=== PATIENT | female | born 1935 | race Caucasian/White ===

== ENCOUNTER 2018-11-23 19:57 | Inpatient (IN) | payer OTHER, MEDICAID ==
[~2018-11-23] VITALS: Ht 152.4 cm; Wt 47.2 kg
[2018-11-23] MEDS ORDERED: SODIUM CHLORIDE 0.9% 1000ML BAG (SEPSIS BOLUS) IV ONE (20:45)
[2018-11-23] MEDS ORDERED: PIPERACILLIN/TAZ 3.375G PREMIX 50 ML IV ONE (20:45)
[2018-11-23] MEDS ORDERED: VANCOMYCIN 1 G PREMIX 200 ML IV ONE (20:45)
[2018-11-23 21:31] LABS: HEMATOCRIT. 42.5 % (36.0-48.0); HEMOGLOBIN. 14.3 g/dL (12.0-16.0); MEAN CORPUSCULAR HEMOGLOBIN 30.6 pg (28.0-32.0); MEAN CORPUSCULAR VOLUME 91.1 fL (81.0-99.0); MEAN PLATELET VOLUME 6.5 fl (7.4-10.4); PLATELET 391 x1000/uL (130-400); RED BLOOD CELL COUNT 4.66 mill/uL (4.2-5.4); RED CELL DISTRIBUTION WIDTH 17.5 % (11.6-14.6)
[2018-11-23 21:38] LABS: CHLORIDE 103 mEq/L (98-107)
[2018-11-23 21:42] LABS: PARTIAL THROMBOPLASTIN TIME 24.2 sec (23.4-31.0); PROTHROMBIN TIME 10.3 sec (9.6-11.0)
[2018-11-23 21:51] LABS: PLATELET ESTIMATE NORMAL
[2018-11-23 22:19] LABS: CLARITY URINE CLEAR (CLEAR); COLOR URINE YELLOW (YELLOW); KETONES URINE NEGATIVE (NEGATIVE); LEUKOCYTE ESTERASE URINE NEGATIVE (NEGATIVE); NITRITE URINE NEGATIVE (NEGATIVE); OCCULT BLOOD URINE NEGATIVE (NEGATIVE); PROTEIN URINE TRACE (NEGATIVE); SPECIFIC GRAVITY URINE 1.014 (1.005-1.030)
[2018-11-23] MEDS ORDERED: ONDANSETRON HCL 4MG/2ML INJ IV PRN (23:45)
[2018-11-23] MEDS ORDERED: CLONIDINE 0.1MG TABLET PO PRN (23:45)
[2018-11-23] MEDS ORDERED: IPRATROPIUM/ALBUTEROL 0.5-3(2.5)MG/3ML NEB NEB PRN (23:45)
[2018-11-23] MEDS ORDERED: PIPERACILLIN/TAZ 3.375G PREMIX 50 ML IV SCH (23:45)
[2018-11-24] VITALS (15 sets, daily range): BP systolic 105–162; BP diastolic 49–87
[2018-11-24] MEDS: IPRATROPIUM/ALBUTEROL 0.5-3(2.5)MG/3ML NEB HHN SCH ×3 (00:47→20:27)
[2018-11-24] MEDS: SODIUM CHLORIDE 0.9% 1,000 ML IV SCH ×3 (01:41→20:57)
[2018-11-24] MEDS ORDERED: DEXTROSE 50% WATER 50ML SYRINGE IV PRN (03:30)
[2018-11-24] MEDS: PIPERACILLIN/TAZOBACTAM 2.25 G in DEXTROSE 5% WATER 50 ML IV SCH ×3 (05:09→17:02)
[2018-11-24] MEDS: BLOOD SUGAR DIAGNOSTIC STRIP TEST SCH ×4 (05:57→20:57)
[2018-11-24 07:09] LABS: CHLORIDE 106 mEq/L (98-107)
[2018-11-24 07:30] LABS: LDL CHOLESTEROL 37 mg/dL (5-100)
[2018-11-24 07:33] LABS: HDL CHOLESTEROL 79 mg/dL (40-59)
[2018-11-24 07:37] LABS: HEMATOCRIT. 37.1 % (36.0-48.0); HEMOGLOBIN. 12.3 g/dL (12.0-16.0); MEAN CORPUSCULAR VOLUME 87.7 fL (81.0-99.0); MEAN PLATELET VOLUME 7.1 fl (7.4-10.4); PLATELET 359 x1000/uL (130-400); RED BLOOD CELL COUNT 4.23 mill/uL (4.2-5.4); RED CELL DISTRIBUTION WIDTH 17.5 % (11.6-14.6)
[2018-11-24 08:28] LABS: PLATELET ESTIMATE NORMAL
[2018-11-24] MEDS: ENOXAPARIN 30MG/0.3ML SYR SUBCUT SCH (08:47)
[2018-11-24] MEDS: INSULIN LISPRO 100 UNITS/ML SUBCUT SCH ×4 (08:48→20:56)
[2018-11-24] MEDS: VANCOMYCIN 750 MG PREMIX 150 ML IV SCH (13:53)
[2018-11-24] MEDS: BUDESONIDE 0.5MG/2ML NEB HHN SCH ×2 (14:55→20:27)
[2018-11-24 16:03] LABS: ETHANOL BLOOD < 10 mg/dL
[2018-11-24 16:08] LABS: T4 FREE 1.26 ng/dL (0.76-1.46)
[2018-11-24 16:42] LABS: VITAMIN B12 SERUM 1084 pg/mL (211-911)
[2018-11-24 16:45] LABS: FOLIC ACID (FOLATE) SERUM > 20.00 ng/mL (>5.38)
[2018-11-25] VITALS (12 sets, daily range): BP systolic 125–175; BP diastolic 50–104
[2018-11-25] MEDS: ACETAMINOPHEN 325MG TABLET PO PRN ×2 (00:54→17:43)
[2018-11-25] MEDS: PIPERACILLIN/TAZOBACTAM 2.25 G in DEXTROSE 5% WATER 50 ML IV SCH ×4 (00:54→17:42)
[2018-11-25 06:42] LABS: BASOPHILS % 0.3 % (0.0-2.0); EOSINOPHILS % 0.1 % (0.0-5.0); HEMATOCRIT. 35.5 % (36.0-48.0); HEMOGLOBIN. 12.3 g/dL (12.0-16.0); LYMPHOCYTES % 7.7 % (20.0-50.0); MEAN CORPUSCULAR HEMOGLOBIN 32.3 pg (28.0-32.0); MEAN CORPUSCULAR VOLUME 92.8 fL (81.0-99.0); MONOCYTES % 5.9 % (2.0-8.0); PLATELET 332 x1000/uL (130-400); RED BLOOD CELL COUNT 3.82 mill/uL (4.2-5.4); RED CELL DISTRIBUTION WIDTH 17.5 % (11.6-14.6)
[2018-11-25 06:48] LABS: CHLORIDE 103 mEq/L (98-107)
[2018-11-25] MEDS: INSULIN LISPRO 100 UNITS/ML SUBCUT SCH ×4 (07:03→20:17)
[2018-11-25] MEDS: BLOOD SUGAR DIAGNOSTIC STRIP TEST SCH ×4 (07:03→20:11)
[2018-11-25] MEDS: ENOXAPARIN 30MG/0.3ML SYR SUBCUT SCH (08:48)
[2018-11-25] MEDS: VANCOMYCIN 750 MG PREMIX 150 ML IV SCH (08:48)
[2018-11-25] MEDS: IPRATROPIUM/ALBUTEROL 0.5-3(2.5)MG/3ML NEB HHN SCH ×3 (09:23→20:59)
[2018-11-25] MEDS: BUDESONIDE 0.5MG/2ML NEB HHN SCH ×2 (09:24→20:59)
[2018-11-25] MEDS: SODIUM CHLORIDE 0.9% 1,000 ML IV SCH ×2 (12:26→20:16)
[2018-11-25] MEDS ORDERED: SODIUM CHLORIDE 10% FOR INH 15ML VIAL NEB INH SCH (14:00)
[2018-11-25] MEDS: CLONIDINE 0.1MG TABLET PO PRN (22:11)
[2018-11-26] VITALS (13 sets, daily range): BP systolic 107–156; BP diastolic 48–80
[2018-11-26] MEDS: PIPERACILLIN/TAZOBACTAM 2.25 G in DEXTROSE 5% WATER 50 ML IV SCH ×4 (00:38→18:00)
[2018-11-26] MEDS: IPRATROPIUM/ALBUTEROL 0.5-3(2.5)MG/3ML NEB HHN SCH ×4 (01:02→21:24)
[2018-11-26] MEDS: VANCOMYCIN 750 MG PREMIX 150 ML IV SCH ×2 (02:40→13:28)
[2018-11-26] MEDS: SODIUM CHLORIDE 0.9% 1,000 ML IV SCH ×3 (03:31→21:37)
[2018-11-26 06:37] LABS: BASOPHILS % 0.3 % (0.0-2.0); EOSINOPHILS % 0.1 % (0.0-5.0); HEMATOCRIT. 31.1 % (36.0-48.0); HEMOGLOBIN. 10.9 g/dL (12.0-16.0); LYMPHOCYTES % 13.4 % (20.0-50.0); MEAN CORPUSCULAR HEMOGLOBIN 31.9 pg (28.0-32.0); MEAN CORPUSCULAR VOLUME 91.1 fL (81.0-99.0); MEAN PLATELET VOLUME 7.2 fl (7.4-10.4); MONOCYTES % 7.4 % (2.0-8.0); NEUTROPHILS % 78.8 % (40.0-76.0); PLATELET 308 x1000/uL (130-400); RED BLOOD CELL COUNT 3.41 mill/uL (4.2-5.4); RED CELL DISTRIBUTION WIDTH 17.3 % (11.6-14.6)
[2018-11-26 06:46] LABS: CHLORIDE 100 mEq/L (98-107)
[2018-11-26] MEDS: BLOOD SUGAR DIAGNOSTIC STRIP TEST SCH ×4 (06:50→21:36)
[2018-11-26] MEDS: INSULIN LISPRO 100 UNITS/ML SUBCUT SCH ×4 (08:04→21:42)
[2018-11-26] MEDS: ENOXAPARIN 30MG/0.3ML SYR SUBCUT SCH (09:13)
[2018-11-26] MEDS: BUDESONIDE 0.5MG/2ML NEB HHN SCH ×2 (10:20→21:25)
[2018-11-26] MEDS ORDERED: POTASSIUM CHLORIDE 20MEQ/PACKET PO NR (10:30)
[2018-11-26] MEDS ORDERED: AMLODIPINE 2.5MG TABLET PO NR (10:30)
[2018-11-26] MEDS ORDERED: FUROSEMIDE 40MG/4ML VIAL IVP NR (13:00)
[2018-11-26] MEDS: GUAIFENESIN-DM 200MG-20MG/10ML UDC PO PRN (13:27)
[2018-11-26] MEDS: INSULIN GLARGINE UD 100 UNITS/ML SYR SUBCUT SCH (21:37)
[2018-11-27] VITALS (11 sets, daily range): BP systolic 109–175; BP diastolic 51–93
[2018-11-27] MEDS: PIPERACILLIN/TAZOBACTAM 2.25 G in DEXTROSE 5% WATER 50 ML IV SCH ×5 (00:12→23:02)
[2018-11-27] MEDS: IPRATROPIUM/ALBUTEROL 0.5-3(2.5)MG/3ML NEB HHN SCH ×4 (00:42→21:18)
[2018-11-27] MEDS: VANCOMYCIN 750 MG PREMIX 150 ML IV SCH ×2 (01:56→15:46)
[2018-11-27] MEDS: CLONIDINE 0.1MG TABLET PO PRN (04:00)
[2018-11-27] MEDS: GUAIFENESIN-DM 200MG-20MG/10ML UDC PO PRN (04:00)
[2018-11-27] MEDS: BLOOD SUGAR DIAGNOSTIC STRIP TEST SCH ×4 (05:51→21:34)
[2018-11-27 07:12] LABS: BASOPHILS % 0.4 % (0.0-2.0); EOSINOPHILS % 2.5 % (0.0-5.0); HEMATOCRIT. 31.7 % (36.0-48.0); HEMOGLOBIN. 11.1 g/dL (12.0-16.0); LYMPHOCYTES % 21.9 % (20.0-50.0); MEAN CORPUSCULAR HEMOGLOBIN 32.2 pg (28.0-32.0); MEAN CORPUSCULAR VOLUME 91.8 fL (81.0-99.0); MONOCYTES % 9.4 % (2.0-8.0); NEUTROPHILS % 65.8 % (40.0-76.0); PLATELET 320 x1000/uL (130-400); RED BLOOD CELL COUNT 3.45 mill/uL (4.2-5.4); RED CELL DISTRIBUTION WIDTH 16.9 % (11.6-14.6)
[2018-11-27 07:27] LABS: CHLORIDE 100 mEq/L (98-107)
[2018-11-27] MEDS: ENOXAPARIN 30MG/0.3ML SYR SUBCUT SCH (08:38)
[2018-11-27] MEDS: AMLODIPINE 2.5MG TABLET PO SCH (08:38)
[2018-11-27] MEDS: INSULIN LISPRO 100 UNITS/ML SUBCUT SCH ×4 (08:39→21:34)
[2018-11-27] MEDS: SODIUM CHLORIDE 0.9% 1,000 ML IV SCH ×2 (08:42→19:30)
[2018-11-27] MEDS ORDERED: POTASSIUM CHLORIDE 20MEQ/PACKET PO NR (09:15)
[2018-11-27] MEDS: BUDESONIDE 0.5MG/2ML NEB HHN SCH (09:27)
[2018-11-27] MEDS ORDERED: POTASSIUM CHLORIDE INJ 40 MEQ in DEXT 5% WATER 250 ML IV NR (10:00)
[2018-11-27] MEDS: INSULIN GLARGINE UD 100 UNITS/ML SYR SUBCUT SCH ×2 (10:25→21:34)
[2018-11-28] VITALS (15 sets, daily range): BP systolic 91–179; BP diastolic 56–93
[2018-11-28] MEDS: IPRATROPIUM/ALBUTEROL 0.5-3(2.5)MG/3ML NEB HHN SCH ×4 (00:43→21:21)
[2018-11-28] MEDS: VANCOMYCIN 750 MG PREMIX 150 ML IV SCH ×2 (01:56→17:21)
[2018-11-28] MEDS: ACETAMINOPHEN 325MG TABLET PO PRN ×2 (02:05→14:36)
[2018-11-28] MEDS: CLONIDINE 0.1MG TABLET PO PRN ×2 (03:28→21:29)
[2018-11-28] MEDS: PIPERACILLIN/TAZOBACTAM 2.25 G in DEXTROSE 5% WATER 50 ML IV SCH ×3 (05:09→19:14)
[2018-11-28] MEDS: SODIUM CHLORIDE 0.9% 1,000 ML IV SCH ×2 (05:11→17:22)
[2018-11-28 05:39] LABS: BASOPHILS % 0.5 % (0.0-2.0); EOSINOPHILS % 4.8 % (0.0-5.0); HEMATOCRIT. 31.2 % (36.0-48.0); LYMPHOCYTES % 28.4 % (20.0-50.0); MEAN CORPUSCULAR HEMOGLOBIN 30.9 pg (28.0-32.0); MEAN CORPUSCULAR VOLUME 87.9 fL (81.0-99.0); MEAN PLATELET VOLUME 6.8 fl (7.4-10.4); MONOCYTES % 9.4 % (2.0-8.0); NEUTROPHILS % 56.9 % (40.0-76.0); PLATELET 317 x1000/uL (130-400); RED BLOOD CELL COUNT 3.55 mill/uL (4.2-5.4); RED CELL DISTRIBUTION WIDTH 16.8 % (11.6-14.6)
[2018-11-28] MEDS: BLOOD SUGAR DIAGNOSTIC STRIP TEST SCH ×4 (06:00→21:27)
[2018-11-28 06:02] LABS: CHLORIDE 103 mEq/L (98-107)
[2018-11-28] MEDS: INSULIN GLARGINE UD 100 UNITS/ML SYR SUBCUT SCH ×2 (09:12→21:36)
[2018-11-28] MEDS: INSULIN LISPRO 100 UNITS/ML SUBCUT SCH ×4 (09:12→21:00)
[2018-11-28] MEDS: AMLODIPINE 2.5MG TABLET PO SCH (09:13)
[2018-11-28] MEDS: ENOXAPARIN 30MG/0.3ML SYR SUBCUT SCH (09:13)
[2018-11-28] MEDS ORDERED: POTASSIUM CHLORIDE INJ 40 MEQ in DEXT 5% WATER 250 ML IV SCH (10:30)
[2018-11-28] MEDS: GUAIFENESIN-DM 200MG-20MG/10ML UDC PO PRN (17:21)
[2018-11-28] MEDS: BUDESONIDE 0.5MG/2ML NEB HHN SCH (21:21)
[2018-11-29] VITALS (15 sets, daily range): BP systolic 130–170; BP diastolic 58–96
[2018-11-29] MEDS: PIPERACILLIN/TAZOBACTAM 2.25 G in DEXTROSE 5% WATER 50 ML IV SCH ×4 (00:45→17:23)
[2018-11-29] MEDS: IPRATROPIUM/ALBUTEROL 0.5-3(2.5)MG/3ML NEB HHN SCH ×4 (01:56→20:10)
[2018-11-29] MEDS: VANCOMYCIN 750 MG PREMIX 150 ML IV SCH (04:13)
[2018-11-29] MEDS: BLOOD SUGAR DIAGNOSTIC STRIP TEST SCH ×4 (05:40→20:22)
[2018-11-29] MEDS: GUAIFENESIN-DM 200MG-20MG/10ML UDC PO PRN ×2 (05:40→08:57)
[2018-11-29 06:49] LABS: BASOPHILS % 0.6 % (0.0-2.0); EOSINOPHILS % 4.6 % (0.0-5.0); HEMOGLOBIN. 10.4 g/dL (12.0-16.0); LYMPHOCYTES % 29.1 % (20.0-50.0); MEAN CORPUSCULAR HEMOGLOBIN 31.3 pg (28.0-32.0); MEAN CORPUSCULAR VOLUME 90.7 fL (81.0-99.0); MEAN PLATELET VOLUME 6.9 fl (7.4-10.4); MONOCYTES % 9.5 % (2.0-8.0); NEUTROPHILS % 56.2 % (40.0-76.0); PLATELET 311 x1000/uL (130-400); RED BLOOD CELL COUNT 3.31 mill/uL (4.2-5.4); RED CELL DISTRIBUTION WIDTH 16.7 % (11.6-14.6)
[2018-11-29 06:59] LABS: CHLORIDE 102 mEq/L (98-107)
[2018-11-29] MEDS: INSULIN LISPRO 100 UNITS/ML SUBCUT SCH ×4 (08:56→22:09)
[2018-11-29] MEDS: INSULIN GLARGINE UD 100 UNITS/ML SYR SUBCUT SCH ×2 (08:56→22:11)
[2018-11-29] MEDS: AMLODIPINE 2.5MG TABLET PO SCH (08:57)
[2018-11-29] MEDS: ENOXAPARIN 30MG/0.3ML SYR SUBCUT SCH (08:57)
[2018-11-29] MEDS: SODIUM CHLORIDE 0.9% 1,000 ML IV SCH ×3 (08:58→22:01)
[2018-11-29] MEDS: BUDESONIDE 0.5MG/2ML NEB HHN SCH ×2 (09:54→20:10)
[2018-11-29] MEDS ORDERED: POTASSIUM CHLORIDE 20MEQ TABLET SR PO NR (10:15)
[2018-11-29] MEDS: ACETAMINOPHEN 325MG TABLET PO PRN (13:40)
[2018-11-30] VITALS (7 sets, daily range): BP systolic 89–185; BP diastolic 34–80
[2018-11-30] MEDS: PIPERACILLIN/TAZOBACTAM 2.25 G in DEXTROSE 5% WATER 50 ML IV SCH ×4 (00:22→18:08)
[2018-11-30] MEDS: CLONIDINE 0.1MG TABLET PO PRN ×2 (00:23→21:45)
[2018-11-30] MEDS: IPRATROPIUM/ALBUTEROL 0.5-3(2.5)MG/3ML NEB HHN SCH ×3 (00:43→20:52)
[2018-11-30] MEDS: SODIUM CHLORIDE 0.9% 1,000 ML IV SCH ×3 (06:09→17:30)
[2018-11-30] MEDS: BLOOD SUGAR DIAGNOSTIC STRIP TEST SCH ×4 (06:09→21:45)
[2018-11-30 06:55] LABS: EOSINOPHILS % 6.1 % (0.0-5.0); HEMATOCRIT. 32.3 % (36.0-48.0); HEMOGLOBIN. 11.2 g/dL (12.0-16.0); LYMPHOCYTES % 23.3 % (20.0-50.0); MEAN CORPUSCULAR HEMOGLOBIN 30.3 pg (28.0-32.0); MEAN CORPUSCULAR VOLUME 87.5 fL (81.0-99.0); MONOCYTES % 9.9 % (2.0-8.0); NEUTROPHILS % 59.7 % (40.0-76.0); PLATELET 349 x1000/uL (130-400); RED BLOOD CELL COUNT 3.69 mill/uL (4.2-5.4)
[2018-11-30 07:29] LABS: CHLORIDE 101 mEq/L (98-107)
[2018-11-30] MEDS: ACETAMINOPHEN 325MG TABLET PO PRN ×2 (08:38→18:09)
[2018-11-30] MEDS: ENOXAPARIN 30MG/0.3ML SYR SUBCUT SCH (08:38)
[2018-11-30] MEDS: INSULIN LISPRO 100 UNITS/ML SUBCUT SCH ×4 (08:42→21:46)
[2018-11-30] MEDS: AMLODIPINE 2.5MG TABLET PO SCH (08:44)
[2018-11-30] MEDS: INSULIN GLARGINE UD 100 UNITS/ML SYR SUBCUT SCH ×2 (10:05→21:47)
[2018-11-30] MEDS: GUAIFENESIN-DM 200MG-20MG/10ML UDC PO PRN ×2 (12:29→21:45)
[2018-11-30] MEDS: BUDESONIDE 0.5MG/2ML NEB HHN SCH (20:52)
[2018-12-01] VITALS: BP 119/72
[2018-12-01] MEDS: PIPERACILLIN/TAZOBACTAM 2.25 G in DEXTROSE 5% WATER 50 ML IV SCH ×2 (02:24→06:41)
[2018-12-01] MEDS: SODIUM CHLORIDE 0.9% 1,000 ML IV SCH ×3 (02:40→22:35)
[2018-12-01 04:00] VITALS: BP 144/68
[2018-12-01] MEDS: BLOOD SUGAR DIAGNOSTIC STRIP TEST SCH ×4 (06:41→21:24)
[2018-12-01 08:10] VITALS: BP 157/81
[2018-12-01] MEDS: INSULIN LISPRO 100 UNITS/ML SUBCUT SCH ×4 (08:22→21:00)
[2018-12-01] MEDS: BUDESONIDE 0.5MG/2ML NEB HHN SCH (08:50)
[2018-12-01] MEDS: IPRATROPIUM/ALBUTEROL 0.5-3(2.5)MG/3ML NEB HHN SCH ×3 (08:50→20:57)
[2018-12-01] MEDS: AMLODIPINE 2.5MG TABLET PO SCH (09:08)
[2018-12-01] MEDS: ENOXAPARIN 30MG/0.3ML SYR SUBCUT SCH (09:21)
[2018-12-01] MEDS: INSULIN GLARGINE UD 100 UNITS/ML SYR SUBCUT SCH ×2 (10:47→21:44)
[2018-12-01 12:42] VITALS: BP 167/79
[2018-12-01] MEDS: ACETAMINOPHEN 325MG TABLET PO PRN (15:21)
[2018-12-01 17:09] VITALS: BP 141/73
[2018-12-01 20:00] VITALS: BP 176/94
[2018-12-01] MEDS: CLONIDINE 0.1MG TABLET PO PRN (21:45)
[2018-12-02] VITALS: BP 117/57
[2018-12-02] MEDS: IPRATROPIUM/ALBUTEROL 0.5-3(2.5)MG/3ML NEB HHN SCH ×3 (00:39→13:05)
[2018-12-02 04:00] VITALS: BP 180/90
[2018-12-02] MEDS: ACETAMINOPHEN 325MG TABLET PO PRN ×2 (04:58→17:48)
[2018-12-02] MEDS: CLONIDINE 0.1MG TABLET PO PRN (04:58)
[2018-12-02 07:08] LABS: BASOPHILS % 1.2 % (0.0-2.0); EOSINOPHILS % 6.5 % (0.0-5.0); HEMATOCRIT. 30.6 % (36.0-48.0); HEMOGLOBIN. 10.5 g/dL (12.0-16.0); LYMPHOCYTES % 32.2 % (20.0-50.0); MEAN CORPUSCULAR HEMOGLOBIN 31.3 pg (28.0-32.0); MEAN PLATELET VOLUME 7.2 fl (7.4-10.4); MONOCYTES % 10.8 % (2.0-8.0); NEUTROPHILS % 49.3 % (40.0-76.0); PLATELET 389 x1000/uL (130-400); RED BLOOD CELL COUNT 3.36 mill/uL (4.2-5.4); RED CELL DISTRIBUTION WIDTH 17.1 % (11.6-14.6)
[2018-12-02] MEDS: BLOOD SUGAR DIAGNOSTIC STRIP TEST SCH ×2 (07:10→13:01)
[2018-12-02 07:22] LABS: CHLORIDE 105 mEq/L (98-107)
[2018-12-02] MEDS: INSULIN LISPRO 100 UNITS/ML SUBCUT SCH ×2 (08:00→13:01)
[2018-12-02] MEDS: AMLODIPINE 2.5MG TABLET PO SCH (08:26)
[2018-12-02] MEDS: ENOXAPARIN 30MG/0.3ML SYR SUBCUT SCH (08:47)
[2018-12-02] MEDS ORDERED: POTASSIUM CHLORIDE 20MEQ/PACKET PO SCH (09:30)
[2018-12-02] MEDS: INSULIN GLARGINE UD 100 UNITS/ML SYR SUBCUT SCH (10:58)
[2018-12-02 12:00] VITALS: BP 137/65
[2018-12-02 15:33] VITALS: BP 137/65
[2018-12-02 16:00] VITALS: BP 137/68
[2018-12-02] MEDS: SODIUM CHLORIDE 0.9% 1,000 ML IV SCH (16:44)
[2018-12-02] MEDS ORDERED: AMLODIPINE 2.5MG TABLET PO SCH (21:00)
== END 2018-12-02 19:10 | disposition home health service (06) | DRG 871 ==
LOC: ER 19:57 → 3WST 23:11 → EDBEDREQTM 23:15 → EDBEDREQSVC 23:15 → EDBEDREQ 23:15 → ENRESERV 23:23 → 6WST 11-30 01:15
PROVIDERS: ADMIT Internal Medicine; ATTEND Internal Medicine
DX: A41.9 Sepsis, unspecified organism (principal); G92 Toxic encephalopathy; J18.9 Pneumonia, unspecified organism; J96.01 Acute respiratory failure with hypoxia; R65.21 Severe sepsis with septic shock; E87.2 Acidosis; E87.1 Hypo-osmolality and hyponatremia; J47.0 Bronchiectasis with acute lower respiratory infection; J84.9 Interstitial pulmonary disease, unspecified; D64.9 Anemia, unspecified; E11.649 Type 2 diabetes mellitus with hypoglycemia without coma; G90.8 Other disorders of autonomic nervous system; R26.0 Ataxic gait; E87.6 Hypokalemia; I11.9 Hypertensive heart disease without heart failure; I66.11 Occlusion and stenosis of right anterior cerebral artery; E86.1 Hypovolemia; R13.10 Dysphagia, unspecified; I25.2 Old myocardial infarction; Z87.01 Personal history of pneumonia (recurrent); Z79.899 Other long term (current) drug therapy; Z83.3 Family history of diabetes mellitus; Z82.49 Family history of ischemic heart disease and other diseases of the circulatory system
CPT/HCPCS: 36415; 70544; 70553; 71045; 71250; 80048; 80061; 80202; 80320; 81003; 82140; 82607; 82746; 82962; 83036; 83605; 83880; 83930; 84145; 84300; 84439; 84443; 84481; 84484; 92523; 92610; 93005; 93306; 93880; 93970; 94640; 96365; 96367; 97110; 97162; 97166; 97530; 99291; C1893; J1650; J1815; J1940; J2405; J2543; J3370; J3480; J7030; J7060; J7131; J7620; J7626; G0480

== ENCOUNTER 2019-03-18 19:36 | Inpatient (IN) | payer OTHER, MEDICAID ==
[~2019-03-18] VITALS: Ht 152.4 cm; Wt 48.1 kg
[2019-03-18 21:45] LABS: CHLORIDE 100 mEq/L (98-107)
[2019-03-18 21:49] LABS: BASOPHILS % 0.6 % (0.0-2.0); EOSINOPHILS % 0.3 % (0.0-5.0); ETHANOL BLOOD < 10 mg/dL; HEMATOCRIT. 34.1 % (36.0-48.0); HEMOGLOBIN. 11.5 g/dL (12.0-16.0); LYMPHOCYTES % 10.3 % (20.0-50.0); MEAN CORPUSCULAR HEMOGLOBIN 29.6 pg (28.0-32.0); MEAN CORPUSCULAR VOLUME 88.1 fL (81.0-99.0); MEAN PLATELET VOLUME 7.4 fl (7.4-10.4); MONOCYTES % 6.3 % (2.0-8.0); NEUTROPHILS % 82.5 % (40.0-76.0); PLATELET 403 x1000/uL (130-400); RED BLOOD CELL COUNT 3.88 mill/uL (4.2-5.4); RED CELL DISTRIBUTION WIDTH 15.5 % (11.6-14.6)
[2019-03-18 23:23] LABS: *AMPHETAMINES SCREEN URINE NEGATIVE (NEGATIVE); *BARBITURATES SCREEN URINE NEGATIVE (NEGATIVE); *BENZODIAZEPINES SCREEN URINE NEGATIVE (NEGATIVE); *COCAINE SCREEN URINE NEGATIVE (NEGATIVE)
[2019-03-18 23:24] LABS: CANNABINOID URINE SCREEN NEGATIVE (NEGATIVE); METHADONE URINE SCREEN NEGATIVE (NEGATIVE); OPIATES URINE SCREEN PRESUMTIVE POSITIVE (NEGATIVE); PHENCYCLIDINE URINE SCREEN NEGATIVE (NEGATIVE)
[2019-03-19] MEDS ORDERED: KETOROLAC 15MG/ML VIAL IV ONE (01:15)
[2019-03-19] MEDS ORDERED: SODIUM CHLORIDE 0.9% 500 ML IV ONE (01:15)
[2019-03-19 20:31] VITALS: BP 168/85
[2019-03-19 21:00] VITALS: BP 165/89
[2019-03-19] MEDS: BLOOD SUGAR DIAGNOSTIC STRIP TEST SCH (21:13)
[2019-03-19 22:07] VITALS: BP 173/78
[2019-03-19] MEDS: HYDROCODONE/ACETAMINOPHEN 5/325MG TABLET PO PRN (22:13)
[2019-03-19] MEDS ORDERED: DEXTROSE 50% WATER 50ML SYRINGE IV PRN (22:30)
[2019-03-19] MEDS ORDERED: DEXTROMETHORPHAN PO PRN (22:30)
[2019-03-19] MEDS ORDERED: GUAIFENESIN PO PRN (22:30)
[2019-03-19] MEDS ORDERED: LEVO50TA8 PO (22:33)
[2019-03-19] MEDS ORDERED: LOSA50TA41 PO (22:35)
[2019-03-19] MEDS ORDERED: AMLO5TAB88 PO (22:42)
[2019-03-19] MEDS ORDERED: MULT1TAB67 PO (22:42)
[2019-03-19] MEDS ORDERED: INS7030 SUBCUT ×2 (22:42)
[2019-03-19] MEDS ORDERED: [UNRECOGNIZED DRUG - CODE] PO (22:42)
[2019-03-19] MEDS ORDERED: Norco 5/325 PO (22:45)
[2019-03-19] MEDS: INSULIN LISPRO 100 UNITS/ML SUBCUT SCH (23:00)
[2019-03-20] VITALS (12 sets, daily range): BP systolic 104–158; BP diastolic 49–88
[2019-03-20] MEDS: GUAIFENESIN-DM 200MG-20MG/10ML UDC PO PRN ×3 (00:11→17:19)
[2019-03-20] MEDS: LOSARTAN POTASSIUM 50 MG TABLET PO SCH ×2 (00:11→08:26)
[2019-03-20] MEDS: AMLODIPINE 5MG TABLET PO SCH ×2 (00:12→08:27)
[2019-03-20 01:46] LABS: CLARITY URINE CLOUDY (CLEAR); COLOR URINE YELLOW (YELLOW); KETONES URINE TRACE (NEGATIVE); LEUKOCYTE ESTERASE URINE NEGATIVE (NEGATIVE); NITRITE URINE NEGATIVE (NEGATIVE); OCCULT BLOOD URINE 1+ (NEGATIVE); PROTEIN URINE NEGATIVE (NEGATIVE); SPECIFIC GRAVITY URINE 1.014 (1.005-1.030); UROBILINOGEN URINE 0.2 E.U./dL (0.2-1.0)
[2019-03-20] MEDS: BLOOD SUGAR DIAGNOSTIC STRIP TEST SCH ×4 (07:05→20:31)
[2019-03-20] MEDS: LEVOTHYROXINE SODIUM 50MCG TABLET PO SCH (07:07)
[2019-03-20] MEDS: INSULIN LISPRO 100 UNITS/ML SUBCUT SCH ×4 (07:20→20:26)
[2019-03-20] MEDS: MULTIVITAMINS,THER W-MINERALS TABLET PO SCH (08:26)
[2019-03-20 08:41] LABS: BASOPHILS % 1.4 % (0.0-2.0); EOSINOPHILS % 3.8 % (0.0-5.0); HEMOGLOBIN. 11.5 g/dL (12.0-16.0); LYMPHOCYTES % 23.4 % (20.0-50.0); MEAN CORPUSCULAR HEMOGLOBIN 28.7 pg (28.0-32.0); MEAN CORPUSCULAR VOLUME 85.3 fL (81.0-99.0); MEAN PLATELET VOLUME 7.5 fl (7.4-10.4); NEUTROPHILS % 62.4 % (40.0-76.0); PLATELET 430 x1000/uL (130-400); RED BLOOD CELL COUNT 3.99 mill/uL (4.2-5.4); RED CELL DISTRIBUTION WIDTH 15.5 % (11.6-14.6)
[2019-03-20 08:53] LABS: CHLORIDE 103 mEq/L (98-107)
[2019-03-20] MEDS ORDERED: ENOXAPARIN 40MG/0.4ML SYR SUBCUT SCH (09:00)
[2019-03-20 09:02] LABS: LDL CHOLESTEROL 54 mg/dL (5-100)
[2019-03-20 09:03] LABS: HDL CHOLESTEROL 92 mg/dL (40-59); T4 FREE 0.92 ng/dL (0.76-1.46)
[2019-03-20] MEDS ORDERED: POTASSIUM CHLORIDE 20MEQ TABLET SR PO SCH (10:00)
[2019-03-20] MEDS: METFORMIN HCL 500MG TABLET PO SCH (17:19)
[2019-03-20] MEDS: HYDROCODONE/ACETAMINOPHEN 5/325MG TABLET PO PRN (17:54)
[2019-03-21] VITALS (9 sets, daily range): BP systolic 104–140; BP diastolic 48–78
[2019-03-21] MEDS: BLOOD SUGAR DIAGNOSTIC STRIP TEST SCH ×2 (05:50→11:50)
[2019-03-21] MEDS: LEVOTHYROXINE SODIUM 50MCG TABLET PO SCH (05:51)
[2019-03-21 07:01] LABS: BASOPHILS % 1.2 % (0.0-2.0); EOSINOPHILS % 5.6 % (0.0-5.0); HEMATOCRIT. 32.8 % (36.0-48.0); HEMOGLOBIN. 11.1 g/dL (12.0-16.0); LYMPHOCYTES % 31.2 % (20.0-50.0); MEAN CORPUSCULAR HEMOGLOBIN 28.5 pg (28.0-32.0); MEAN CORPUSCULAR VOLUME 84.5 fL (81.0-99.0); MEAN PLATELET VOLUME 7.6 fl (7.4-10.4); MONOCYTES % 12.5 % (2.0-8.0); NEUTROPHILS % 49.5 % (40.0-76.0); PLATELET 419 x1000/uL (130-400); RED BLOOD CELL COUNT 3.88 mill/uL (4.2-5.4); RED CELL DISTRIBUTION WIDTH 15.4 % (11.6-14.6)
[2019-03-21] MEDS: INSULIN LISPRO 100 UNITS/ML SUBCUT SCH ×2 (07:20→13:14)
[2019-03-21 07:36] LABS: CHLORIDE 106 mEq/L (98-107)
[2019-03-21] MEDS: MULTIVITAMINS,THER W-MINERALS TABLET PO SCH (08:49)
[2019-03-21] MEDS: METFORMIN HCL 500MG TABLET PO SCH (08:49)
[2019-03-21] MEDS: LOSARTAN POTASSIUM 50 MG TABLET PO SCH (08:49)
[2019-03-21] MEDS: AMLODIPINE 5MG TABLET PO SCH (08:49)
[2019-03-21] MEDS ORDERED: ENOXAPARIN 30MG/0.3ML SYR SUBCUT SCH (09:00)
[2019-03-21] MEDS: GUAIFENESIN-DM 200MG-20MG/10ML UDC PO PRN (09:44)
[2019-03-21] MEDS: HYDROCODONE/ACETAMINOPHEN 5/325MG TABLET PO PRN (09:45)
[2019-03-21] MEDS ORDERED: METF-815 MT (14:00)
[2019-03-21] MEDS ORDERED: BENZ-16 MT (14:00)
== END 2019-03-21 15:38 | disposition home health service (06) | DRG 637 ==
LOC: ER 19:36 → 3WST 03-19 00:18 → EDBEDREQTM 03-19 00:23 → EDBEDREQ 03-19 00:23 → EDBEDREQDT 03-19 00:23 → EDBEDREQSVC 03-19 00:23 → ENRESERV 03-19 17:47
PROVIDERS: ADMIT Internal Medicine; ATTEND Internal Medicine
DX: E11.649 Type 2 diabetes mellitus with hypoglycemia without coma (principal); G93.41 Metabolic encephalopathy; E87.1 Hypo-osmolality and hyponatremia; I10 Essential (primary) hypertension; J06.9 Acute upper respiratory infection, unspecified; E03.9 Hypothyroidism, unspecified; D64.9 Anemia, unspecified; Z79.899 Other long term (current) drug therapy; Z79.4 Long term (current) use of insulin
CPT/HCPCS: 36415; 71045; 72170; 80048; 80053; 80061; 80305; 80320; 81003; 82962; 83036; 84439; 84443; 84480; 84484; 85025; 93005; 96374; 97162; 99284; 99285; J1650; J1815; J1885; J7040; G0480